=== PATIENT | female | born 1950 | race Caucasian/White ===

== ENCOUNTER 2022-06-28 11:33 | Emergency (ER) | payer SELFPAY ==
[2022-06-28 11:38] VITALS: BP 135/81; PULSE 97; RESP 26; TEMP 36.8; O2SAT 99
--- NOTE | 2022-06-28 13:07 | PC.NURSE ---
pt left d/t wait time
== END 2022-06-28 15:02 | disposition left against medical advice (07) ==
LOC: ANHED 14:53
DX: R05.9 Cough, unspecified (principal)
CPT/HCPCS: 99199

== ENCOUNTER 2022-06-29 17:11 | Inpatient (IN) | payer MEDICARE, OTHER, SELFPAY ==
[2022-06-29] VITALS (25 sets, daily range): BP systolic 129–167; BP diastolic 65–124; PULSE 101–132; RESP 16–44; TEMP 36.8–37.4; O2SAT 90–100
--- NOTE | ~2022-06-29 | XR_ITS ---
Portable chest x-ray Comparison: 06/29/2022 Clinical History: Shortness of breath Findings: Lungs are clear, without focal consolidation or pleural effusion. Multiple small calcified hilar lymph nodes are present. Cardiomediastinal silhouette is stable. Bones and soft tissues are u nremarkable. Impression: Clear lungs. Small calcified hilar lymph nodes. Reviewed, dictated and finalized at location . NER CHIEF Impression: Clear lungs. Small calcified hilar lymph nodes.
--- NOTE | ~2022-06-29 | XR_ITS ---
EXAMINATION: XR chest 2V Exam Date/Time: 06/29/2022 17:28 MACHINE ENGRAVER HISTORY: CP, SOB, DYSPNEA, ASTHMA, COPD Comparison: None available. RESULT: Lines, tubes, and devices: Suture line in the right lung apex. Cholecystectomy clips. Lungs and pleura: Calcified pulmonary granulomas and left hilar lymph node. Senescent and emphysemat ous change. Cardiomediastinal silhouette: Stable. Other: No acute osseous or upper abdominal finding. IMPRESSION: No acute cardiopulmonary process. Reviewed, dictated and finalized at location K. INE ENGRAVER
--- NOTE | ~2022-06-29 | CT_ITS ---
EXAMINATION: CTA chest PE protocol DATE: 06/29/2022 20:43 INDICATION: chest pain, sob TECHNIQUE: Computed tomography angiography (CTA) of the chest was performed with 100 mL Omnipaque-350 intravenous contrast timed to evaluate the pulmonary arteries. Coronal maximum intensity projection 3D-reconstructions were created by the technologist. The dose-length product (DLP) was 166.46 mGy-cm. Automated exposure control and iterative reconstruction technique were employed. COMPARISON: X-ray chest same date. FINDINGS: Lung parenchyma and airways: Biapical pleural scarring. Calcified bilateral granulomas. Mild emphysem atous change. Calcified suture material in the right medial apex. Pleura: Unremarkable. Thoracic inlet, axillae and chest wall: Unremarkable. Thoracic aorta: Mild arch calcification. Mediastinum: Calcified mediastinal and hilar lymph nodes.. Heart and pericardium: Normal. Coronary artery calcifications: Absent. Upper abdomen: No significant finding. Bones: No acute osseous finding. Pulmonary arteries: Study quality: Adequate. No pulmonary emboli detected. IMPRESSION: No CT evidence of acute pulmonary embolus. No acute process detected in the chest. Reviewed, dictated and finalized at location K. RETE PIPE MAKER IMPRESSION: No CT evidence of acute pulmonary embolus. No acute process detected in the yefri [address].
--- NOTE | 2022-06-29 17:17 | ECG_ITS ---
Measurements Intervals [place] Rate: 110 P: 80 [place]: 163 QRS: -50 QRSD: 94 T: 88 QT: 331 QTc: 450 Interpretive Statements SINUS TACHYCARDIA MARKED LEFT AXIS DEVIATION [QRS AXIS < -30] PROBABLE SEPTAL MYOCARDIAL INFARCTION , OF INDETERMINATE AGE [35 ms Q WAVE IN V1/V2] NO PREVIOUS ECG AVAILABLE FOR COMPARISON Electronically Signed On 06-30-2022 11:30:35 DROP WIRER by Ayaka Ibarra M.D.
[2022-06-29 17:33] LABS: Basophils Absolute Auto 0.1 K/mm3 (0.0-0.1); Basophils Percent Auto 0.5 % (0.2-1.2); Eosinophils Absolute Auto 0.1 K/mm3 (0-0.3); Hematocrit 41.7 % (42.0-52.0); Hemoglobin 13.4 g/dL (14.0-18.0); Immature Granulocyte Absolute 0.06 K/mm3 (0.00-0.031); Immature Granulocyte Percent A 0.4 % (0-0.5); Lymphocytes Absolute Auto 2.25 K/mm3 (0.9-3.2); Lymphocytes Percent Auto 15.5 % (18.3-44.2); Mean Corpuscular HGB Conc 32.1 g/dl (32-36); Mean Corpuscular Hemoglobin 30.5 pg (26-34); Mean Platelet Volume 11.8 fl (7.4-10.4); Monocytes Absolute Auto 1.2 K/mm3 (0.1-0.6); Monocytes Percent Auto 8.5 % (2.6-8.5); Neutrophils Absolute Auto 10.8 K/mm3 (1.3-6.7); Neutrophils Percent Auto 74.1 % (45.5-73.1); Platelet Count Result 275 k/mm3 (150-375); Red Blood Count 4.39 M/mm3 (4.6-6.20); Red Cell Distribution Width 12.8 % (11.5-14.5); White Blood Count 14.5 K/mm3 (4.5-10.0)
[2022-06-29 17:43] LABS: Partial Thromboplastin Time 28.6 SECONDS (22.3-36.8)
[2022-06-29 17:50] LABS: Alanine Aminotransferase 17 U/L (6-50); Albumin Level 4.1 g/dL (3.5-5.1); Alkaline Phosphatase 99 U/L (38-126); Anion Gap 4 mmol/L (8-16); Aspartate Amino Transferase 22 U/L (17-59); Bilirubin,Total 0.7 mg/dL (0.2-1.3); Blood Urea Nitrogen 8 mg/dL (9-20); Calcium 10.1 mg/dL (8.4-10.2); Carbon Dioxide 28 mmol/L (22-30); Chloride 108 mmol/L (98-107); Estimated CRCL calculation 78 ml/min; Estimated Glomerular Filt Rate > 60; Glucose 124 mg/dL (65-110); Lipase 36 U/L (23-300); Potassium 3.1 mmol/L (3.4-5.0); Sodium 140 mmol/L (137-145)
[2022-06-29 18:02] LABS: Troponin I < 0.012 ng/mL (0.000-0.034)
[2022-06-29 18:24] LABS: INR 1.1; Prothrombin Time 13.8 Seconds (11.1-14.7)
--- NOTE | 2022-06-29 19:48 | ED.CHESTPAIN ---
HPI - Chest Pain General Chief Complaint: Chest Pain Stated Complaint: sob Time Seen by Provider: 06/29/22 19:20 Source: patient and RN notes reviewed Mode of arrival: ambulatory Limitations: no limitations History of Present Illness HPI narrative: This is a 72 year old female smoker with history of asthma, CAD who presents for evaluation of cough and chest pain. PAtient has had productive cough with white phlegm for 2 weeks. She is reporting midsternal chest pain that is sharp and nonradiating since yesterday. She reports her pain occurs when she breaths and she is short of breath. She reports chills. She is unsure of fever. she denies nausea, vomitin, leg swelling. She has nebulizer and she used it once yesterday. She has not taken anything else for her symptoms. She reports [place] years ago but denies coronary stents. Related Data Home Medications Medication Instructions Recorded Confirmed albuterol sulfate 90 mcg/actuation 2 puff inhalation QID PRN 06/29/22 06/30/22 aerosol inhaler Shortness Of Breath albuterol sulfate 90 mcg/actuation 90 mcg inhalation TID PRN Dyspnea 06/29/22 06/30/22 aerosol inhaler (ProAir HFA) aspirin 81 mg tablet 81 mg PO DAILY 06/29/22 06/30/22 benzonatate 200 mg PO TID PRN Cough 06/29/22 06/30/22 cetirizine 10 mg capsule (Zyrtec) 10 mg PO DAILY 06/29/22 06/30/22 dicyclomine 20 mg tablet 20 mg PO QID PRN Abdominal 06/29/22 06/30/22 Discomfort duloxetine 60 mg capsule,delayed 60 mg PO DAILY 06/29/22 06/30/22 release fluticasone 250 mcg-salmeterol 50 1 inh inhalation DAILY 06/29/22 06/30/22 mcg/dose blistr powdr for inhalation hydrocodone 10 mg-acetaminophen 1 tablet PO TID PRN Pain, Severe 06/29/22 06/30/22 325 mg tablet montelukast 10 mg tablet 10 mg PO DAILY 06/29/22 06/30/22 ropinirole 0.5 mg tablet 0.5 mg PO HS 06/29/22 06/30/22 simethicone 80 mg chewable tablet 80 mg PO DAILY PRN Acid Reflux 06/29/22 06/30/22 tiotropium bromide 18 mcg capsule 18 mcg inhalation DAILY 06/29/22 06/30/22 with inhalation device (Spiriva with HandiHaler) zolpidem 10 mg tablet 10 mg PO HS 06/29/22 06/30/22 cholecalciferol (vitamin D3) 25 25 mcg PO DAILY 06/30/22 06/30/22 mcg (1,000 unit) tablet Allergies Allergy/AdvReac Type Severity Reaction Status Date / Time raloxifene [From Evista] Allergy Swelling Verified 06/29/22 23:50 of Lip/Tongue/Throat Review of Systems Constitutional: Constitutional: Reports chills and Denies weakness ENT: Reports nasal congestion Cardiovascular: Cardiovascular: Reports chest pain, Denies syncope, Reports rapid heart rate, Denies irregular heart rhythm, Denies leg edema and Reports dyspnea Respiratory: Respiratory: Reports chest congestion, Reports cough, Denies hemoptysis, Denies excessive phlegm production and Reports dyspnea Gastrointestinal: Gastrointestinal: Denies abdominal pain, Denies hematochezia, Denies diarrhea and Denies vomiting Musculoskeletal: Musculoskeletal: Denies joint swelling, Denies loss of height and Denies muscle weakness Neurologic: Denies syncope, Denies focal weakness and Denies weakness PMFSH Past Medical History Medical History (Updated 06/30/22 @ 07:41 by Jennifer Burger MD) Asthma CVA (cerebral vascular accident) Myocardial infarction Family History Family History (Updated 06/29/22 @ 23:49 by Bhumi Berry RN) Father CAD (coronary artery disease) PVD (peripheral vascular disease) Mother Ovarian cancer Sibling Pacemaker Social History Social History (Updated 06/29/22 @ 20:01 by Jennifer Burger MD) Smoking packs per day: 1.5 Smoking cigarettes per day: 30.0 Smoking status: Current every day smoker Alcohol intake: former Substance use: current Substance use type: marijuana Lack of Transportation: No Lack of Food: Often True Current Housing: I Do Not Have Housing Concerned About Future Housing: YES Difficulty Paying Gas/Electric Bills: YES Difficulty Paying f
[2022-06-29] MEDS: ONDANSETRON INJ 4 MG/2 ML VIAL IV PUSH (20:09)
[2022-06-29] MEDS: MORPHINE SULFATE (*CRX) 4 MG/ML INJ IV PUSH (20:09)
[2022-06-29] MEDS: POTASSIUM CHLORIDE 20 MEQ TABLET 40 MEQ PO (20:09)
[2022-06-29 20:21] LABS: Lactic Acid Reflex 0.9 mmol/L (0.7-2.0)
[2022-06-29 20:45] LABS: Lipase 42 U/L (23-300)
[2022-06-29 20:49] LABS: Magnesium 1.8 mg/dL (1.6-2.3)
[2022-06-29 20:58] LABS: Troponin I < 0.012 ng/mL (0.000-0.034)
[2022-06-29] MEDS: IPRATROPIUM BR 0.02% INH SOLN 0.5 MG/2.5 ML VIAL INHALATION (21:08)
[2022-06-29] MEDS: ALBUTEROL SULFATE NEB 2.5 MG/3 ML INH INHALATION (21:08)
[2022-06-29] MEDS: methylPREDNISolone SOD SUCC 125 MG VIAL IV PUSH (21:18)
--- NOTE | 2022-06-29 21:56 | PM.IMHP ---
H&P: HPI History of Present Illness Date/Time: 06/29/22 21:56 Chief Complaint: Shortness of breath Narrative: This is a 72-year-old female with past medical history significant for COPD/emphysema, tobacco dependence smokes about a pack of cigarettes daily. Patient presents to the emergency room due to shortness of breath, cough, nonproductive, poor appetite, patient denies any fevers rigors or chills, no nausea, no vomiting, no diarrhea. Preliminary workup was significant for: FINDINGS:? Lung parenchyma and airways: Biapical pleural scarring. Calcified bilateral granulomas. Mild emphysematous change. Calcified suture material in the right medial apex. Pleura: Unremarkable. Thoracic inlet, axillae and chest wall: Unremarkable. Thoracic aorta: Mild arch calcification. Mediastinum: Calcified mediastinal and hilar lymph nodes.. Heart and pericardium: Normal. Coronary artery calcifications: Absent. Upper abdomen: No significant finding. Bones: No acute osseous finding. Pulmonary arteries: Study quality: Adequate. No pulmonary emboli detected. IMPRESSION: No CT evidence of acute pulmonary embolus. No acute process detected in the chest. Chest x-ray: IMPRESSION: No acute cardiopulmonary process. Review of Systems Review of Systems: Shortness of breath, poor appetite. Constitutional: Constitutional: Denies chills, Reports fatigue, Denies fever(s), Reports lethargy, Denies malaise, Denies night sweats, Reports poor appetite and Denies weakness Eyes: Eyes: Denies change in vision ENT: Denies dysphagia and Denies odynophagia Cardiovascular: Cardiovascular: Denies chest pain, Denies leg edema and Denies palpitations Respiratory: Respiratory: Reports change in phlegm color, Denies chest congestion, Reports cough, Reports excessive phlegm production, Denies pain on inspiration, Reports dyspnea and Reports dyspnea on exertion Gastrointestinal: Gastrointestinal: Denies abdominal pain, Denies dyspepsia, Denies heartburn, Denies diarrhea, Denies nausea and Denies vomiting Genitourinary: Genitourinary: Denies dysuria Musculoskeletal: Musculoskeletal: Denies arthralgias, Denies joint swelling and Denies muscle weakness Integumentary/Breasts: Skin/Breast: Denies rash Neurologic: Denies vertigo, Denies dizziness, Denies focal weakness and Denies Sensory deficit (Neuro) Psychiatric: Psychiatric: Reports no additional psychiatric complaints and Reports as per HPI Endocrine: Endocrine: Denies cold intolerance, Denies fatigue, Denies flushing, Denies heat intolerance, Denies polyphagia, Denies polydipsia and Denies palpitations Hematologic/Lymphatic: Hematologic/Lymphatic: Reports no additional hematologic/lymphatic complaints and Reports as per HPI Allergic/Immunologic: Allergic/Immunologic: Reports no additional allergic/immunologic complaints and Reports as per HPI PMFSH Past Medical History Medical History (Updated 06/30/22 @ 00:06 by Franklin Krishna MD) Asthma CVA (cerebral vascular accident) Myocardial infarction Family History Family History (Updated 06/29/22 @ 23:49 by Bhumi Berry RN) Father CAD (coronary artery disease) PVD (peripheral vascular disease) Mother Ovarian cancer Sibling Pacemaker Social History Social History (Updated 06/29/22 @ 20:01 by Jennifer Burger MD) Smoking packs per day: 1.5 Smoking cigarettes per day: 30.0 Smoking status: Current every day smoker Alcohol intake: former Substance use: current Substance use type: marijuana Lack of Transportation: No Lack of Food: Often True Current Housing: I Do Not Have Housing Concerned About Future Housing: YES Difficulty Paying Gas/Electric Bills: YES Difficulty Paying for Meds: YES Currently Unemployed: No Education: High School Diploma/GED Difficulty w/ Childcare or Family Care: No Spiritual care concerns: No Meds Home Medications and Allergies Home Medications Medication
[2022-06-29 22:17] LABS: Alveolar/Arterial O2 Gradient 46.6 mmHg; Base Excess ABG 1.9 mEq/l (+/-2.0); Carboxyhemoglobin 1.5 % THb (0-2.0); Fractional Inspired Oxygen 21 %; HCO3 ABG 26.2 mEq/l (22.0-26.0); Methemoglobin ABG 0.4 %THb (0-1.5); Oxygen Content ABG 17.5 %vol (16.0-22.0); Oxygen Saturation ABG 89.7 % (95.0-100.0); Oxyhemoglobin 89.1 % THb (90.0-100.0); PO2 ABG 55.2 mmHg (80.0-100.0); PO2 FiO2 Ratio Arterial Blood 2.63 %; pH ABG 7.434 (7.350-7.450)
[2022-06-29 22:18] LABS: Modified Allen's Test Pass; Site Drawn RIGHT RADIAL
--- NOTE | 2022-06-29 23:43 | ADMGEN ---
This patient, Danish Langston, was admitted to [facility] Surg Room 310-01. Patient/family oriented to hospital policies and general routines including ID bracelet, bed and alarms, visiting hours, pain management, procedures, bathroom and other care routines, personal items, smoking policy, room service/diet, and visiting hours. Information on how to activate the Rapid Response Team has been discussed. Patient/Family are encouraged to report perceived risks to care and to ask questions if they do not understand what they are told or what they should do.
[2022-06-29 23:53] LABS: Influenza A QL RT-PCR Negative (Negative); Influenza B QL RT-PCR Negative (Negative); SARS-CoV-2 RNA PCR Negative
[2022-06-29 23:58] LABS: Troponin I < 0.012 ng/mL (0.000-0.034)
[2022-06-30] VITALS (19 sets, daily range): BP systolic 99–130; BP diastolic 48–80; PULSE 93–123; RESP 14–20; TEMP 36.1–37.1; O2SAT 91–97; BMI 19.3
[2022-06-30] MEDS: ALBUTEROL SULFATE NEB 2.5 MG/3 ML INH INHALATION ×4 (02:46→19:45)
[2022-06-30] MEDS: IPRATROPIUM BR 0.02% INH SOLN 0.5 MG/2.5 ML VIAL INHALATION ×4 (02:46→19:45)
[2022-06-30] MEDS: methylPREDNISolone SOD SUCC 40 MG VIAL IV PUSH ×3 (06:15→17:20)
[2022-06-30 06:29] LABS: Basophils Percent Auto 0.2 % (0.2-1.2); Hemoglobin 12.5 g/dL (12.0-15.0); Immature Granulocyte Absolute 0.19 K/mm3 (0.00-0.031); Lymphocytes Absolute Auto 0.57 K/mm3 (0.9-3.2); Lymphocytes Percent Auto 2.9 % (18.3-44.2); Mean Corpuscular HGB Conc 32.1 g/dl (32-36); Mean Corpuscular Hemoglobin 30.3 pg (26-34); Mean Corpuscular Volume 94.4 fl (80-100); Mean Platelet Volume 12.4 fl (7.4-10.4); Monocytes Absolute Auto 0.7 K/mm3 (0.1-0.6); Monocytes Percent Auto 3.8 % (2.6-8.5); Neutrophils Absolute Auto 17.9 K/mm3 (1.3-6.7); Neutrophils Percent Auto 92.1 % (45.5-73.1); Platelet Count Result 251 k/mm3 (150-375); Red Blood Count 4.13 M/mm3 (4.2-5.4); Red Cell Distribution Width 12.8 % (11.5-14.5); White Blood Count 19.5 K/mm3 (4.5-10.0)
[2022-06-30 06:46] LABS: Alanine Aminotransferase 23 U/L (6-35); Albumin Level 3.6 g/dL (3.5-5.1); Alkaline Phosphatase 86 U/L (38-126); Anion Gap 6 mmol/L (8-16); Aspartate Amino Transferase 30 U/L (14-36); Bilirubin,Total 0.6 mg/dL (0.2-1.3); Blood Urea Nitrogen 12 mg/dL (7-17); Calcium 9.9 mg/dL (8.4-10.2); Carbon Dioxide 24 mmol/L (22-30); Chloride 108 mmol/L (98-107); Estimated CRCL calculation 52 ml/min; Estimated Glomerular Filt Rate > 60; Glucose 220 mg/dL (65-110); Sodium 138 mmol/L (137-145)
[2022-06-30] MEDS: FLUTICASONE/SALMETEROL 115-21 MCG INHALER 1 PUFF 2 PUFF INHALATION (07:10)
[2022-06-30] MEDS: UMECLIDINIUM BROMIDE 62.5 MCG ELLIPTA 1 PUFF INHALATION (08:09)
[2022-06-30] MEDS: ASPIRIN 81 MG ENTERIC TABLET PO (08:31)
[2022-06-30] MEDS: MONTELUKAST SODIUM 10 MG TABLET PO (08:31)
[2022-06-30] MEDS: LORATADINE 10 MG TABLET PO (08:31)
[2022-06-30] MEDS: POTASSIUM CHLORIDE 20 MEQ TABLET.ER PO (08:31)
[2022-06-30] MEDS: DULoxetine HCL 60 MG CAPSULE.DR PO (08:32)
[2022-06-30] MEDS: guaiFENesin/DEXTROMETHORPHAN 10 ML UDC 5 ML PO ×2 (11:31→15:24)
--- NOTE | 2022-06-30 11:31 | PM.IMPN ---
Progress Note: A&P Assessment and Plan (1) COPD exacerbation: Code(s): J44.1 - Chronic obstructive pulmonary disease with (acute) exacerbation Status: Acute Assessment and Plan: Continue steroids, breathing treatments, pulmonology consult pending No signs of comorbid infection, hold off on antibiotics (2) Asthma: Code(s): J45.909 - Unspecified asthma, uncomplicated Status: Acute Assessment and Plan: Exacerbating patient's hypoxia Continue steroids and breathing treatments, pulmonology consult pending No PFTs available (3) Tobacco dependence: Code(s): F17.200 - Nicotine dependence, unspecified, uncomplicated Status: Acute Assessment and Plan: Smoking cessation strongly recommend (4) Insomnia: Code(s): G47.00 - Insomnia, unspecified Status: Acute Assessment and Plan: Continue home Ambien (5) Coronary artery disease: Code(s): I25.10 - Atherosclerotic heart disease of [place] coronary artery without angina pectoris Status: Acute Assessment and Plan: Continue aspirin, check troponin, monitor telemetry (6) IBS (irritable bowel syndrome): Code(s): K58.9 - Irritable bowel syndrome without diarrhea Status: Acute Assessment and Plan: Continue dicyclomine and simethicone (7) Depression with anxiety: Code(s): F41.8 - Other specified anxiety disorders Status: Acute Assessment and Plan: Continue duloxetine (8) Allergic rhinitis: Code(s): J30.9 - Allergic rhinitis, unspecified Status: Acute Assessment and Plan: Continue montelukast (9) Chest pain: Code(s): R07.9 - Chest pain, unspecified Status: Acute Assessment and Plan: Takes nitro p.r.n. at home whenever she has chest tightness unsure if this is pleuritic her cardiac in etiology, will monitor telemetry and trend troponins (10) Restless legs syndrome: Code(s): G25.81 - Restless legs syndrome Status: Acute Assessment and Plan: Continue ropinirole Plan DVT prophylaxis with Lovenox GI prophylaxis with PPI Code status full code Subjective Date/time seen: 06/30/22 11:31 Interval history: No overnight events noted. No nausea, vomiting or diarrhea. No fevers or chills. Still with significant shortness of breath, somewhat improved from admission. She also admits to a cough that is productive of sputum appears unchanged from yesterday. She has been getting intermittent coughing fits that make her feel lightheaded. Review of Systems Review of Systems: 12 point review of systems was assessed and was negative except as noted in the HPI Exam Narrative: General: Mild respiratory distress, alert oriented x3 HEENT: Atraumatic, normocephalic, mucous membranes moist CV: Regular rate and rhythm, S1, S2 Lungs: Poor air entry throughout, scattered tight wheezes noted Abdomen: Soft, nontender, nondistended Extremities: Normal to inspection Skin: No rashes noted, no lesions or wounds seen Psych: Euthymic, normal affect Objective Data Vital Signs Vital Signs: Vital Signs - 24 hr 06/29/22 17:12 06/29/22 19:27 06/29/22 20:00 Temperature 99.3 F Pulse Rate 108 H 120 H Respiratory Rate 18 20 Blood Pressure 141/79 H 167/87 H Pulse Oximetry 97 97 Oxygen Delivery Room Air Room Air 06/29/22 20:00 06/29/22 19:26 06/29/22 19:27 Temperature Pulse Rate 112 H 118 H Respiratory Rate 19 22 H Blood Pressure 146/124 H Pulse Oximetry 96 97 Oxygen Delivery Room Air 06/29/22 19:28 06/29/22 19:30 06/29/22 19:31 Temperature Pulse Rate 132 H 116 H 119 H Respiratory Rate 21 H 16 20 Blood Pressure 167/87 H Pulse Oximetry 100 97 96 Oxygen Delivery 06/29/22 19:45 06/29/22 20:00 06/29/22 20:15 Temperature Pulse Rate 112 H 116 H 117 H Respiratory Rate 22 H 19 20 Blood Pressure Pulse Oximetry 95 9
[2022-06-30] MEDS: BENZONATATE 100 MG CAPSULE PO ×2 (13:17→17:20)
[2022-06-30] MEDS: polyethylene glycoL 3350 17 GM POWD.PACK PO (15:24)
[2022-06-30] MEDS: POTASSIUM CHLORIDE INJ 40 MEQ in SODIUM CHLORIDE 0.9% IV 500 ML 130 MEQ IVPB (21:05)
[2022-06-30] MEDS: ENOXAPARIN 40 MG/0.4 ML SYRINGE SUB-Q (21:06)
[2022-06-30] MEDS: ZOLPIDEM TARTRATE (*CRX) 5 MG TABLET 10 MG PO (21:06)
[2022-06-30] MEDS: rOPINIRole HCL 0.5 MG TABLET PO (21:06)
[2022-06-30] MEDS: PANTOPRAZOLE 40 MG TABLET PO (21:06)
[2022-06-30] MEDS: BENZONATATE 100 MG CAPSULE 200 MG PO (21:13)
[2022-06-30 21:15] LABS: Troponin I < 0.012 ng/mL (0.000-0.034)
[2022-06-30] MEDS: HYDROcodone/acetaminophen (*CRX) 10-325 MG TABLET 1 TAB PO (21:15)
[2022-06-30 23:53] LABS: Troponin I < 0.012 ng/mL (0.000-0.034)
[2022-07-01] VITALS (28 sets, daily range): BP systolic 99–124; BP diastolic 50–71; PULSE 77–165; RESP 14–22; TEMP 36.2–37.1; O2SAT 92–97
--- NOTE | 2022-07-01 | ECHO_ITS ---
Patient Info Name: Danish Langston Age: 72 years : 1950 Gender: Female Ht: 65 in Wt: 116 lbs BSA: 1.55 m2 HR: 127 bpm BP: 124 / 70 mmHg Heart Rhythm: Atrial Fibrillation, Tachycardia Technical Quality: Fair Exam Date: 07/01/2022 4:24 PM Exam Location: [facility] Patient Status: Inpatient Admit Date: 07/01/2022 Staff Ordering Physician: Noel Costa MD Business Operations Coordinator: Stella Lieberman RDCS Attending Provider: Franklin Krishna MD Exam Type: CA echo doppler color flow Study Info Indications - Afib Complete two-dimensional, color flow and Doppler transthoracic echocardiogram is performed. Summary 1. Complete two-dimensional, color flow and Doppler transthoracic echocardiogram is performed. 2. Left ventricular chamber dimension is normal. 3. Left ventricular systolic function is normal, estimated at 65-70%. 4. There is mildly increased left ventricular wall thickness. 5. Right ventricular systolic function is normal. 6. The mitral valve has calcified leaflets. 7. The mitral valve annulus is mildly calcified. 8. There is trace mitral valve regurgitation. 9. There is mild tricuspid valve regurgitation. 10. Dilated inferior vena cava with no collapse upon inspiration consistent with elevated right atrial pressure, 15 mmHg. Left Ventricle Left ventricular chamber dimension is normal. Left ventricular systolic function is normal, estimated at 65-70%. There is mildly increased left ventricular wall thickness. Right Ventricle Right ventricular chamber dimension is normal. Right ventricular systolic function is normal. Left Atria Left atrial chamber dimension is normal. Right Atria Right atrial chamber dimension is normal. Atrial Septum Intact interatrial septum visualized by color flow imaging. Aortic Valve The aortic valve is not well visualized. There is no aortic valve stenosis. There is no aortic valve regurgitation. Pulmonic Valve The pulmonic valve is not well visualized. Mitral Valve The mitral valve has calcified leaflets. There is no mitral valve stenosis. There is trace mitral valve regurgitation. The mitral valve annulus is mildly calcified. Tricuspid Valve There is mild tricuspid valve regurgitation. Pericardium/Pleural There is trivial pericardial effusion. Inferior Vena Cava Dilated inferior vena cava with no collapse upon inspiration consistent with elevated right atrial pressure, 15 mmHg. Aorta The aortic root size at the sinus of Valsalva is normal. Left Ventricular Outflow Tract Name Value Normal LVOT 2D LVOT Diameter 2.0 cm LVOT Doppler LVOT Peak Gradient 2 mmHg LVOT Mean Gradient 1 mmHg LVOT VTI 10 cm LVOT VTI/AV VTI Ratio 0.6 LVOT Stroke Volume 33 ml LVOT CO 4.2 l/min LVOT CI 2.7 l/min/m2 Pulmonic Valve Name
[2022-07-01] MEDS: methylPREDNISolone SOD SUCC 40 MG VIAL IV PUSH ×2 (00:07→05:55)
[2022-07-01] MEDS: IPRATROPIUM BR 0.02% INH SOLN 0.5 MG/2.5 ML VIAL INHALATION ×4 (01:52→20:48)
[2022-07-01] MEDS: ALBUTEROL SULFATE NEB 2.5 MG/3 ML INH INHALATION ×2 (01:52→08:28)
[2022-07-01 04:50] LABS: Troponin I < 0.012 ng/mL (0.000-0.034)
[2022-07-01] MEDS: MONTELUKAST SODIUM 10 MG TABLET PO (08:04)
[2022-07-01] MEDS: polyethylene glycoL 3350 17 GM POWD.PACK PO (08:04)
[2022-07-01] MEDS: PANTOPRAZOLE 40 MG TABLET PO (08:04)
[2022-07-01] MEDS: CHOLECALCIFEROL 1,000 UNITS TABLET 1000 UNITS PO (08:05)
[2022-07-01] MEDS: POTASSIUM CHLORIDE 20 MEQ TABLET.ER PO (08:05)
[2022-07-01] MEDS: ASPIRIN 81 MG ENTERIC TABLET PO (08:05)
[2022-07-01] MEDS: LORATADINE 10 MG TABLET PO (08:05)
[2022-07-01] MEDS: DULoxetine HCL 60 MG CAPSULE.DR PO (08:05)
[2022-07-01] MEDS: BENZONATATE 100 MG CAPSULE 200 MG PO (08:16)
[2022-07-01] MEDS: UMECLIDINIUM BROMIDE 62.5 MCG ELLIPTA 1 PUFF INHALATION (08:28)
[2022-07-01] MEDS: FLUTICASONE/SALMETEROL 115-21 MCG INHALER 1 PUFF 2 PUFF INHALATION ×2 (08:28→20:48)
--- NOTE | 2022-07-01 09:11 | ECG_ITS ---
Measurements Intervals [place] Rate: 164 P: CT: 0 QRS: -19 QRSD: 89 T: 83 QT: 269 QTc: 445 Interpretive Statements ATRIAL FIBRILLATION WITH RAPID VENTRICULAR RESPONSE NONSPECIFIC ST & T-WAVE ABNORMALITY- ANTEROLAT/INF LEADS ABNORMAL ECG COMPARED TO ECG 06/29/2022 17:20:14 ATRIAL FIBRILLATION NOW PRESENT ST-T WAVE ABNORMALITY NOW PRESENT Electronically Signed On 07-01-2022 9:41:35 SENIOR LIBRARIAN by Phoenix Powell D.O.
--- NOTE | 2022-07-01 09:35 | PC.NURSE ---
Tele monitor showing sustained Tachycardia at 0900. Vitals taken at 0905, all vitals within normal range other than HR sustaining 140s-160s. Doctor notified and Stat EKG ordered. Doctor assessed patient and patient will be moving to IMU per orders.
--- NOTE | 2022-07-01 09:39 | PM.IMPN ---
Progress Note: A&P Assessment and Plan (1) Atrial fibrillation with rapid ventricular response: Code(s): I48.91 - Unspecified atrial fibrillation Status: Acute Assessment and Plan: Patient developed new onset of atrial fibrillation with RVR. By history, she may be having episodes of AFib/RVR at home resulting in her chest pounding . [id number] = 6. Will change her Lovenox prophylactic dose to Eliquis. Will start diltiazem. Reluctant to use beta-marianne at this time given that she is now just recovering from a COPD exacerbation. Check echocardiogram. Moved to IMU. Cardiology consult. Check TSH. Monitor on telemetry for heart rate control. (2) Chest pain: Code(s): R07.9 - Chest pain, unspecified Status: Acute Assessment and Plan: Patient having chest pain on admission as well as currently. Unclear if she is having cardiac chest pain but suspect more likely she is having AFib with RVR resulting in demand ischemia. She takes nitro p.r.n. at home whenever she has chest tightness. Serial troponins are negative. She does have nonspecific ST and T-wave changes noted in the anterior lateral leads. EKG reviewed personally concurred by Cardiology. Continue aspirin. Move to IMU. Cardiology consult. (3) COPD exacerbation: Code(s): J44.1 - Chronic obstructive pulmonary disease with (acute) exacerbation Status: Acute Assessment and Plan: Patient admitted for shortness of breath after found have a COPD exacerbation. CTA of the chest showed no PE. There is no acute process noted otherwise. Currently on Solu-Medrol, albuterol neb and Atrovent neb. Will change albuterol p.r.n. given the new onset AFib. Change Solu-Medrol to prednisone. She was educated about the benefits of smoking cessation. (4) Coronary artery disease: Code(s): I25.10 - Atherosclerotic heart disease of [place] coronary artery without angina pectoris Status: Acute Assessment and Plan: Patient is having chest pain most likely related to the uncontrolled atrial fibrillation. Serial troponins are negative. As above. (5) Asthma: Code(s): J45.909 - Unspecified asthma, uncomplicated Status: Acute Assessment and Plan: As above. (6) Tobacco dependence: Code(s): F17.200 - Nicotine dependence, unspecified, uncomplicated Status: Acute Assessment and Plan: Smoking cessation was strongly recommend. Patient was educated about the benefits of smoking cessation. Plan Leukocytosis - noted on admisson. No evidence of infectious process. Nml CT chest, BCx NGTD. Abx remain on hold. Repeat WBC (but may not be helpful since on steroids). check CRP DVT prophylaxis with Eliquis Code status full code MEDICAL DECISION MAKING History obtained from: Patient History from independent sources: chart review External chart review: New problems addressed: AFib, COPD Chronic illnesses addressed: CAD Independent interpretation of studies: Labs independently reviewed. Discussion of management with other providers: Comorbidities complicating care: COPD contributing to her risk of AFib Diagnostic tests considered but not ordered: Shared decision making: Procedures: Risk of complication: HoTN with Dilitazem, bleeding risk for ELiquis Subjective Date/time seen: 07/01/22 09:39 Interval history: 72yo female with CAD, CVA, Tob abuse and asthma here for SOB. Assuming care. Chart reviewed. Called the room because it was noted that the patient has tachycardia. She feels a pounding in her chest. She does describe her chest pain as light but then later describes it as 10/10 chest pain. She has been having this pounding sensation in her chest every other day over the past 2-3 months. Her shortness of breath is better today. Her cough has improved. No nausea or vomiting. Exam Narrative: AF 97.2 124/70 149 20 96% ra Gen - NARD lyi
[2022-07-01 09:53] LABS: Hematocrit 34.7 % (37.0-47.0); Hemoglobin 10.8 g/dL (12.0-15.0); Immature Platelet Fraction Pct 13.8 % (0.9-11.2); Mean Corpuscular HGB Conc 31.1 g/dl (32-36); Mean Corpuscular Hemoglobin 30.8 pg (26-34); Mean Corpuscular Volume 98.9 fl (80-100); Mean Platelet Volume 13.6 fl (7.4-10.4); Platelet Count Result 212 k/mm3 (150-375); Red Blood Count 3.51 M/mm3 (4.2-5.4); Red Cell Distribution Width 13.3 % (11.5-14.5); White Blood Count 27.3 K/mm3 (4.5-10.0)
[2022-07-01] MEDS: APIXABAN 5 MG TABLET PO ×2 (10:05→21:21)
[2022-07-01] MEDS: dilTIAZem HCl INJ 25 MG/5 ML VIAL 10 MG IV PUSH (10:05)
[2022-07-01 10:08] LABS: NT Pro B Type Natriuretic Pept 3210 pg/mL (19.9-100)
[2022-07-01 10:13] LABS: Alanine Aminotransferase 31 U/L (6-35); Albumin Level 3.2 g/dL (3.5-5.1); Alkaline Phosphatase 76 U/L (38-126); Anion Gap 4 mmol/L (8-16); Aspartate Amino Transferase 35 U/L (14-36); Bilirubin,Total 0.4 mg/dL (0.2-1.3); Blood Urea Nitrogen 20 mg/dL (7-17); CRP 11.5 mg/dL (<1.0); Calcium 10.5 mg/dL (8.4-10.2); Carbon Dioxide 23 mmol/L (22-30); Chloride 111 mmol/L (98-107); Estimated CRCL calculation 52 ml/min; Estimated Glomerular Filt Rate > 60; Glucose 193 mg/dL (65-110); Magnesium 2.2 mg/dL (1.6-2.3); Sodium 138 mmol/L (137-145)
[2022-07-01 10:23] LABS: Platelet Estimate Adequate (Adequate); Schistocytes None Seen (NORMAL)
[2022-07-01 10:24] LABS: Band Neutrophils Percent 1 % (0-6); Lymphocytes Absolute Manual 0.54 K/mm3 (1.1-4.5); Lymphocytes Percent Manual 2 % (18-44); Monocytes Absolute Manual 1.36 K/mm3 (0.1-0.90); Monocytes Percent Manual 5 % (3-9); Neutrophils Absolute Manual 25.38 K/mm3 (1.7-7.2); Neutrophils Percent Manual 92 % (46-73); Total Cells Counted 100
[2022-07-01 10:30] LABS: Thyroid Stimulating Hormone Reflex 0.019 uIU/mL (0.465-4.68)
[2022-07-01 11:16] LABS: Hemoglobin A1C 5.4 % (<5.7)
--- NOTE | 2022-07-01 11:49 | PC.NURSE ---
Pt transferred to IMU room 200 at 11:35. Documentation and belongings sent with patient. Report given to PHYLLIS Munoz.
[2022-07-01] MEDS: dilTIAZem 100 MG/100 ML 100 MG/100 ML BAG IV CONT (11:50)
--- NOTE | 2022-07-01 12:48 | PM.CNCAR ---
Assessment and Plan Assessment and plan (1) Atrial fibrillation with rapid ventricular response: Code(s): I48.91 - Unspecified atrial fibrillation Status: Acute Assessment and Plan: New diagnosis with symptoms suggestive of possible AFib episodes prior to admission although she was in sinus rhythm initially. Currently, she is in refractory atrial fibrillation with rapid ventricular response with improvement not satisfactorily controlled heart rate on diltiazem infusion at 10 milligrams/hour. Increase as BP tolerates to 15 milligrams/hour. If heart rate sustains greater than 130 beats per minute may given Toprol tartrate 5 mg IV Q 4 hours as tolerated. Will attempt to avoid beta-marianne therapy given underlying lung disease recent COPD exacerbation if able to control heart rate adequately. CHADS2 Vasc score 6 (age, female, self reported CVA, self reported CAD, HTN). considered sotalol as an option, however, need to document LV systolic function, LV wall thickness prior to initiation. Would prefer to avoid sedation given risk for respiratory compromise in attempt for cardioversion to restore sinus rhythm. However, I did discuss this possibility of KARI guided cardioversion which may be best performed with the assistance of Anesthesiology if required. Will try to avoid this if possible and control her with medical management. 2D echocardiogram ordered. Results pending. Recommendation follow-up review. Systemic anticoagulation advised. Discussed risk versus benefit bleeding versus embolic stroke and the role of anticoagulation to reduce clot formation and stroke secondary to atrial fibrillation. Patient verbalized understanding and agreed with plan of care. (2) Chest pain: Code(s): R07.9 - Chest pain, unspecified Status: Acute Assessment and Plan: Atypical, worse with coughing, deep breathing pleuritic in nature. Troponins negative serially. No evidence for acute coronary syndrome and/or myocardial infarction. (3) Hyperthyroidism: Code(s): E05.90 - Thyrotoxicosis, unspecified without thyrotoxic crisis or storm Status: Acute Assessment and Plan: significantly hyperthyroid which will likely contribute to development of and difficulty in controlling atrial fibrillation. Furthermore this would preclude us from proceeding with cardioversion as likelihood of maintaining sinus rhythm would be diminished as primary treatment would be correcting hyperthyroid state. Will defer further workup and management to primary service at this time. (4) Coronary artery disease: Code(s): I25.10 - Atherosclerotic heart disease of [place] coronary artery without angina pectoris Status: Acute Assessment and Plan: Self-reported history. We do not have records to corroborate at this time. Advise statin therapy given some reported history of stroke and CAD. Goal LDL less than 70. Check lipid panel in a.m.. (5) COPD exacerbation: Code(s): J44.1 - Chronic obstructive pulmonary disease with (acute) exacerbation Status: Acute Assessment and Plan: Stable, improved, management per primary service. Alternative to albuterol with Xopenex. (6) History of CVA (cerebrovascular accident): Code(s): Z86.73 - Personal history of transient ischemic attack (TIA), and cerebral infarction without residual deficits Status: Acute Assessment and Plan: self-reported history. Aspirin 81 mg daily advise, need to monitor bleeding closely. Giving underlying anemia need to follow H&H closely may defer aspirin as she will be on systemic anticoagulation. Statin therapy advised. (7) Tobacco dependence: Code(s): F17.200 - Nicotine dependence, unspecified, uncomplicated Status: Acute Assessment and Plan: Immediate and absolute smoking cessation counseling. History of Present Illness History of Present Illness Consult date/time: date of service: 07/01/22
--- NOTE | 2022-07-01 17:58 | ECG_ITS ---
Measurements Intervals [place] Rate: 82 P: 54 NC: 153 QRS: -5 QRSD: 85 T: 27 QT: 339 QTc: 398 Interpretive Statements SINUS RHYTHM BORDERLINE T WAVE ABNORMALITY- INFERIOR LEADS BASELINE ARTIFACT- I, III, AVR, AVL, AVF, V1-V2, V6 BORDERLINE ECG COMPARED TO ECG 07/01/2022 09:23:04 SINUS RHYTHM NOW PRESENT Electronically Signed On 07-02-2022 7:49:50 CONTRACT ASSOCIATE by Phoenix Powell D.O.
[2022-07-01] MEDS: dilTIAZem 100 MG/100 ML 100 MG/100 ML BAG 10 MG IV CONT (18:43)
--- NOTE | 2022-07-01 19:39 | PC.NURSE ---
This patient, Danish Langston, was received from [facility] on 07/01/22 at 1139. Patient/family oriented to unit policies and routines
[2022-07-01] MEDS: rOPINIRole HCL 0.5 MG TABLET PO (21:20)
[2022-07-01] MEDS: dilTIAZem HCL 60 MG TABLET PO (21:20)
[2022-07-01] MEDS: ZOLPIDEM TARTRATE (*CRX) 5 MG TABLET 10 MG PO (21:21)
[2022-07-02] VITALS (15 sets, daily range): BP systolic 102–124; BP diastolic 55–61; PULSE 70–88; RESP 16–20; TEMP 36.6–36.9; O2SAT 94–97
[2022-07-02] MEDS: IPRATROPIUM BR 0.02% INH SOLN 0.5 MG/2.5 ML VIAL INHALATION ×3 (02:35→13:00)
[2022-07-02 05:02] LABS: Basophils Percent Auto 0.1 % (0.2-1.2); Hematocrit 35.3 % (37.0-47.0); Hemoglobin 11.1 g/dL (12.0-15.0); Immature Granulocyte Absolute 0.19 K/mm3 (0.00-0.031); Lymphocytes Absolute Auto 1.41 K/mm3 (0.9-3.2); Lymphocytes Percent Auto 7.1 % (18.3-44.2); Mean Corpuscular HGB Conc 31.4 g/dl (32-36); Mean Corpuscular Hemoglobin 30.2 pg (26-34); Mean Corpuscular Volume 96.2 fl (80-100); Mean Platelet Volume 12.8 fl (7.4-10.4); Monocytes Absolute Auto 1.3 K/mm3 (0.1-0.6); Monocytes Percent Auto 6.6 % (2.6-8.5); Neutrophils Percent Auto 85.2 % (45.5-73.1); Platelet Count Result 224 k/mm3 (150-375); Red Blood Count 3.67 M/mm3 (4.2-5.4); Red Cell Distribution Width 13.2 % (11.5-14.5); White Blood Count 19.9 K/mm3 (4.5-10.0)
[2022-07-02 05:20] LABS: Albumin Level 3.1 g/dL (3.5-5.1); Anion Gap 0 mmol/L (8-16); Blood Urea Nitrogen 31 mg/dL (7-17); Calcium 10.6 mg/dL (8.4-10.2); Carbon Dioxide 26 mmol/L (22-30); Chloride 108 mmol/L (98-107); Cholesterol 142 mg/dL (0-200); Estimated CRCL calculation 37 ml/min; Estimated Glomerular Filt Rate 55; Glucose 142 mg/dL (65-110); HDL Direct 58 mg/dL; Magnesium 2.4 mg/dL (1.6-2.3); Phosphorus 2.5 mg/dL (2.5-4.5); Sodium 134 mmol/L (137-145); Triglycerides 88 mg/dL (<150)
[2022-07-02 05:29] LABS: LDL Cholesterol Direct 58 mg/dL
[2022-07-02] MEDS: dilTIAZem HCL 60 MG TABLET PO (06:23)
[2022-07-02] MEDS: FLUTICASONE/SALMETEROL 115-21 MCG INHALER 1 PUFF 2 PUFF INHALATION (07:00)
[2022-07-02] MEDS: UMECLIDINIUM BROMIDE 62.5 MCG ELLIPTA 1 PUFF INHALATION (07:00)
[2022-07-02] MEDS: polyethylene glycoL 3350 17 GM POWD.PACK PO (09:09)
[2022-07-02] MEDS: APIXABAN 5 MG TABLET PO (09:09)
[2022-07-02] MEDS: predniSONE 20 MG TABLET 40 MG PO (09:09)
[2022-07-02] MEDS: CHOLECALCIFEROL 1,000 UNITS TABLET 1000 UNITS PO (09:09)
[2022-07-02] MEDS: PANTOPRAZOLE 40 MG TABLET PO (09:09)
[2022-07-02] MEDS: LORATADINE 10 MG TABLET PO (09:09)
[2022-07-02] MEDS: MONTELUKAST SODIUM 10 MG TABLET PO (09:10)
[2022-07-02] MEDS: ASPIRIN 81 MG ENTERIC TABLET PO (09:10)
[2022-07-02] MEDS: ATORVASTATIN 20 MG TABLET PO (09:10)
[2022-07-02] MEDS: DULoxetine HCL 60 MG CAPSULE.DR PO (09:12)
--- NOTE | 2022-07-02 12:14 | PM.PNCARD ---
Progress Note: A&P Assessment and Plan (1) Atrial fibrillation with rapid ventricular response: Code(s): I48.91 - Unspecified atrial fibrillation Status: Acute Assessment and Plan: New diagnosis with symptoms suggestive of possible AFib episodes prior to admission although she was in sinus rhythm initially. she spontaneously converted to sinus rhythm on diltiazem infusion which was successfully weaned in transition to oral diltiazem 60 mg p.o. q.8 hours. May discontinue in favor of diltiazem 180 mg daily to begin early this afternoon. If tolerated she may be discharged from cardiac perspective to follow up as an outpatient within 1 month. Continue systemic anticoagulation with Eliquis 5 mg b.i.d. Pt stable for discharge home from CV perspective. 2D echocardiogram personally reviewed: EF 70% no wall motion abnormalities, normal left atrial size no significant valve pathology, preserved pulmonary pressures. Normal right ventricular size and systolic function. thickening of the mitral valve with mitral annular calcification noted. (2) Chest pain: Code(s): R07.9 - Chest pain, unspecified Status: Acute Assessment and Plan: Atypical, worse with coughing, deep breathing pleuritic in nature. Troponins negative serially. No evidence for acute coronary syndrome and/or myocardial infarction. (3) Hyperthyroidism: Code(s): E05.90 - Thyrotoxicosis, unspecified without thyrotoxic crisis or storm Status: Acute Assessment and Plan: significantly hyperthyroid which will likely contribute to development of and difficulty in controlling atrial fibrillation. Furthermore this would preclude us from proceeding with cardioversion as likelihood of maintaining sinus rhythm would be diminished as primary treatment would be correcting hyperthyroid state. Will defer further workup and management to primary service at this time. (4) COPD exacerbation: Code(s): J44.1 - Chronic obstructive pulmonary disease with (acute) exacerbation Status: Acute Assessment and Plan: Stable, improved, management per primary service. Alternative to albuterol with Xopenex. (5) History of CVA (cerebrovascular accident): Code(s): Z86.73 - Personal history of transient ischemic attack (TIA), and cerebral infarction without residual deficits Status: Acute Assessment and Plan: Self-reported history. Aspirin 81 mg daily advise, need to monitor bleeding closely. Giving underlying anemia need to follow H&H closely may defer aspirin as she will be on systemic anticoagulation. Statin therapy advised. Furthermore, pt had also self-reported a history of CAD. We do not have records to corroborate at this time. Curiously, she has no coronary calcification on CTA chest which would be unexpected given her age and longstanding tobacco abuse history. If CAD is confirmed, would advise statin therapy given some reported history of stroke and CAD. LDL 58. (6) Tobacco dependence: Code(s): F17.200 - Nicotine dependence, unspecified, uncomplicated Status: Acute Assessment and Plan: Immediate and absolute smoking cessation counseling. Subjective Date/time seen: Date of service:07/02/22 12:14 Follow-up for atrial fibrillation with rapid ventricular response patient revert to sinus rhythm last evening little after 5:00 p.m. and has maintained subsequently. Patient feels okay somewhat tired denies significant shortness of breath, chest pain or palpitations. IV diltiazem was weaned off and transitioned successfully to oral diltiazem. Vince is at bedside. No fevers, chills, hemoptysis. Tolerating medications thus far. Review of Systems Review of Systems: All systems reviewed & are unremarkable except as noted in HPI and below Constitutional: Constitutional: Reports as per HPI and Reports no additional constitutional complaints Eyes: Eyes: Reports as per HPI and Rep
[2022-07-02] MEDS: dilTIAZem HCL CD 180 MG CAP.ER.24H PO (12:58)
--- NOTE | 2022-07-02 16:28 | PM.DS ---
DS: Admitting Diagnosis Discharge Date 07/02/22 Admitting Diagnosis Shortness of breath DS: Discharge Diagnosis Discharge Diagnosis (1) Atrial fibrillation with rapid ventricular response: Code(s): I48.91 - Unspecified atrial fibrillation Status: Acute (2) Chest pain: Code(s): R07.9 - Chest pain, unspecified Status: Acute (3) COPD exacerbation: Code(s): J44.1 - Chronic obstructive pulmonary disease with (acute) exacerbation Status: Acute (4) Coronary artery disease: Code(s): I25.10 - Atherosclerotic heart disease of [place] coronary artery without angina pectoris Status: Acute (5) Asthma: Code(s): J45.909 - Unspecified asthma, uncomplicated Status: Acute (6) Tobacco dependence: Code(s): F17.200 - Nicotine dependence, unspecified, uncomplicated Status: Acute DS: Summary Hospital Course Reason for hospitalization: 72yo female with CAD, CVA, Tob abuse and asthma here for SOB. Please see H&P for details. Hospital Course: Patient admitted for shortness of breath and found have a COPD exacerbation.? CTA of the chest showed no PE.? There is no acute process noted otherwise.? Treated with Solu-Medrol, albuterol neb and Atrovent neb. Patient developed new onset of atrial fibrillation with RVR.? By history, she may be having episodes of AFib/RVR at home resulting in her chest pounding .? [id number] = 6. We changed her Lovenox prophylactic dose to Eliquis.? She was started on diltiazem.? Reluctant to use beta-marianne at this time given that she is now just recovering from a COPD exacerbation.?Echocardiogram showing EF 70% minimal valvular disease. She was moved to IMU and Cardiology consulted.? TSH 0.019 but normal FT4. We changed albuterol to p.r.n. given the new onset AFib.? Wheezing and SOB improved and she was transitioned to prednisone.? She was educated about the benefits of smoking cessation.? Patient having chest pain on admission.? Unclear if she is having cardiac chest pain but suspect more likely she is having AFib with RVR resulting in demand ischemia. She takes nitro p.r.n. at home whenever she has chest tightness. Serial troponins were negative.? She does have nonspecific ST and T-wave changes noted in the anterior lateral leads.? We continued aspirin.? She has a remote hx of CAD and [place]. She converted to normal sinus rhythm. She was transitioned to oral diltiazem. WBC was markedly elevated at 27K but this came down without abx. No obvious source of infection anywhere. She was up ambulating with staff. She feels well. She overall did well and was able to be discharged home on 07/02/22 Status at Discharge Cognitive/behavioral status at discharge: Stable Time Spent with Patient Time attestation: Total time spent providing and/or coordinating discharge services: 38 minutes Time spent: Greater than 30 minutes Exam Narrative: AF 124/61 88 16 94% ra Gen - NARD Chest - Distant but clear breath sounds. Normal respiratory rate. CV - RRR S1/S2. Telemetry showing NSR Abd - Soft, NT/ND, Positive BS Ext - No pedal edema Psych - Nml mood But odd affect. Skin - Warm and dry DS: Data Data Completed and Pending Labs on day of discharge: Labs from last 24 hours 07/02/22 07/02/22 04:34 04:34 WBC 19.9 H RBC 3.67 L Hgb 11.1 L Hct 35.3 L MCV 96.2 MCH 30.2 MCHC 31.4 L RDW 13.2 Plt Count 224 MPV 12.8 H Immature Gran % (Auto) 1.0 H Neut % (Auto) 85.2 H Lymph % (Auto) 7.1 L [place] % (Auto) 6.6 Eos % (Auto) 0.0 Baso % (Auto) 0.1 L Lymph # (Auto) 1.41 [place] # (Auto) 1.3 H Eos # (Auto) 0.0 Baso # (Auto) 0.0 Abs Immat Gran (auto) 0.19 H Absolute Neuts (auto) 17.0 H Absolute Nucleated RBC 0.0 Nucleated RBC % 0.0 Sodium 134 L Potassium 5.0 Chloride 108 H Carbon Dioxide 26 Anion Gap 0 L BUN 31 H D Creatinine 1.00 Estim Creat Clear Calc 37 Estimated GFR 55 L Glucose
== END 2022-07-02 17:46 | disposition home or self-care (01) | DRG 191 ==
LOC: ANHED 20:33 → ANH3MEDSUR 22:23 → ANHIMU 07-01 11:34
PROVIDERS: Emergency Medicine; Internal Medicine Cardiovascular Disease; Student in an Organized Health Care Education/Training Program; Admitting Provider Internal Medicine; Emergency Provider General Practice; Visit Provider Internal Medicine
DX: J43.9 Emphysema, unspecified (principal); I24.8 Other forms of acute ischemic heart disease; E05.90 Thyrotoxicosis, unspecified without thyrotoxic crisis or storm; F17.210 Nicotine dependence, cigarettes, uncomplicated; F41.8 Other specified anxiety disorders; G47.00 Insomnia, unspecified; G25.81 Restless legs syndrome; I25.10 Atherosclerotic heart disease of native coronary artery without angina pectoris; I48.91 Unspecified atrial fibrillation; I25.2 Old myocardial infarction; J45.909 Unspecified asthma, uncomplicated; K58.9 Irritable bowel syndrome, unspecified; Z20.822 Contact with and (suspected) exposure to COVID-19; Z86.73 Personal history of transient ischemic attack (TIA), and cerebral infarction without residual deficits; Z79.82 Long term (current) use of aspirin
CPT/HCPCS: 36415; 36600; 71045; 71046; 71275; 80053; 80061; 80069; 82375; 82805; 83036; 83050; 83605; 83690; 83735; 83880; 84439; 84443; 84480; 84484; 85025; 85055; 85610; 85730; 86140; 87040; 87636; 93005; 93306; 94640; 96365; 96366; 96367; 96372; 96375; 96376; 99285; A9270; G0378; J0131; J0696; J1650; J2270; J2405; J2920; J2930; J3480; J7040; J7512; Q9967